=== PATIENT | female | born 1995 | race Two or more races ===

== ENCOUNTER 2019-04-27 20:38 | Emergency (ER) | payer SELFPAY, MEDICAID ==
[~2019-04-27] VITALS: Ht 162.6 cm; Wt 50.8 kg
[2019-04-27 20:47] VITALS: BP 122/89
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
[2019-04-27] MEDS ORDERED: Acetaminophen 500mg (ES) tab ORAL ONE (21:00)
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
[2019-04-27 21:30] VITALS: BP 118/82
[2019-04-27] MEDS ORDERED: IBUPROFEN600 MG ORAL (21:30)
--- NOTE | 2019-04-27 21:30 | NUR ---
ER DISCHARGE NOTE: Patient is cleared to be discharged per ERMD, pt is aox4, on room air, with stable vital signs. pt was given dc and prescription instructions, pt was able to verbalize understanding, pt id band removed. Patient is accompanied by [facility] department
--- NOTE | 2019-04-28 10:54 | Diagnostic Imaging Report ---
Indication: Back pain Comparison: None Findings: 3 views of the lumbar spine were obtained. No acute fracture or malalignment is identified. Vertebral body heights and disk spaces are well maintained. Posterior elements are unremarkable. Impression: No acute findings.
--- NOTE | 2019-04-28 10:54 | Diagnostic Imaging Report ---
Indication: Back pain Comparison: None Findings: 2 views of the thoracic spine were obtained. Normal alignment is demonstrated. Vertebral body heights and intervertebral disc heights are normal. The posterior elements including the facets are unremarkable. Soft tissues are unremarkable. Impression: No acute injury appreciated.
--- NOTE | 2019-04-28 10:54 | Diagnostic Imaging Report ---
Indication: Left wrist pain Findings: 3 views of the left wrist were obtained. No acute fractures, malalignment, erosions or periostitis are identified. Soft tissues are unremarkable. Impression: No acute findings.
== END 2019-04-27 21:30 ==
LOC: EMR 21:15
DX: S09.90XA Unspecified injury of head, initial encounter (principal); M25.532 Pain in left wrist; M54.5 Low back pain; Y35.813A Legal intervention involving manhandling, suspect injured, initial encounter; Y92.9 Unspecified place or not applicable
CPT/HCPCS: 72020; 72070; 99284